=== PATIENT | male | born 1960 | race Caucasian/White ===

== ENCOUNTER 2019-01-22 18:33 | Emergency (ER) | payer OTHER ==
[2019-01-22 19:00] VITALS: BP 121/66
--- NOTE | 2019-01-22 19:14 | UC ---
Skin Complaint HPI - HPI Summary HPI Summary: Patient is a 58yo male presenting with what he believes was a tick bite or ingrown hair on the left thigh that he noticed yesterday morning. States he scratched it, it bled some, but then he left it alone. During the day yesterday he noticed it becoming increasingly red and today it spread even further and is not tender. Denies drainage. Denies seeing a tick. Denies fever, chills, nausea , vomiting. - History of Current Complaint Chief Complaint: UCBiteInjury Stated Complaint: TICK BITE LEFT THIGH Hx Obtained From: Patient Onset/Duration: Sudden Onset, Lasting Days Current Severity: Moderate Pain Intensity: 5 Pain Scale Used: 0-10 Numeric - Allergy/Home Medications Allergies/Adverse Reactions: Allergies Allergy/AdvReac Type Severity Reaction Status Date / Time codeine Allergy Nausea And Verified 01/22/19 18:57 Vomiting PMH/Surg Hx/FS Hx/Imm Hx Previously Healthy: Yes - Surgical History Surgical History: None - Family History Known Family History: Positive: Non-Contributory - Social History Alcohol Use: None Substance Use Type: Marijuana Smoking Status (MU): Heavy Every Day Tobacco Smoker Review of Systems All Other Systems Reviewed And Are Negative: Yes Constitutional: Positive: Negative. Negative: Fever, Chills Skin: Positive: Rash Respiratory: Positive: Negative. Negative: Other Cardiovascular: Positive: Negative Gastrointestinal: Positive: Negative. Negative: Abdominal Pain, Vomiting, Nausea Musculoskeletal: Positive: Edema Neurological: Negative: Paresthesia, Numbness Physical Exam Triage Information Reviewed: Yes Appearance: Well-Appearing, No Pain Distress, Well-Nourished Vital Signs: Initial Vital Signs Temp 99.6 F 01/22/19 18:56 Pulse 82 01/22/19 18:56 Resp 16 01/22/19 18:56 BP 121/66 01/22/19 18:56 Pulse Ox 97 01/22/19 18:56 Vital Signs Reviewed: Yes Eyes: Positive: Conjunctiva Clear ENT: Positive: Hearing grossly normal Neck exam: Normal Neck: Positive: Supple, Nontender Respiratory Exam: Normal Respiratory: Positive: Lungs clear, Normal breath sounds, No respiratory distress. Negative: Crackles, Rhonchi, Stridor, Wheezing Cardiovascular Exam: Normal Cardiovascular: Positive: RRR. Negative: Tachycardia Musculoskeletal: Positive: Strength Intact, No Edema Neurological: Positive: Alert Psychological: Positive: Age Appropriate Behavior Skin: Positive: Other - large area of erythema and warmth encompassing most of left medial thigh. central induration noted. no drainage or fluctuance. Course/Dx - Course Course Of Treatment: Patient without signs and symptoms of systemic infection. Vital signs normal. Patient received shot of Rocephin here and prescription for Bactrim to start tonight for treatment of cellulitis. Baseline CBC w diff was also drawn. I michelle an outline around the area of erythema and instructed him to return tomorrow if the redness has spread past the line. Patient also took a picture of the area for reference. I instructed the patient to go straight to the emergency room if at any point he experiences fever, chills, nausea, vomiting, or increasing pain. Patient is reliable historian and patient. He voiced understanding and agreed to the treatment plan. Also discussed patient with Dr. Cheema who agreed with the treatment plan. - Diagnoses Provider Diagnosis: Cellulitis of left thigh Discharge ED - Sign-Out/Discharge Documenting (check all that apply): Patient Departure All imaging exams completed and their final reports reviewed: No Studies - Discharge Plan Condition: Stable Disposition: HOME Prescriptions: Sulfamethox/Trimethoprim DS* [Bactrim DS 800/160 TAB*] 1 tab PO BID #20 tab Patient Education Materials: Cellulitis (ED) Referrals: No Primary Care Phys,NOPCP [Primary Care Provider] - Additional Instructions: As discussed, you have cellulitis, which is a skin infection. You received a shot of antibiotics here at the urgent care and have been given a prescription for Bactrim as well. Start taking the Bactrim tonight. If you notice the redness has spread tomorrow, come back in to possibly receive another antibiotic shot. Go to the emergency room if you experience severe pain, nausea, vomiting, fever , or chills at any point in time. - Billing Disposition and Condition Condition: STABLE Disposition: Home
[2019-01-22] MEDS ORDERED: cefTRIAXone VIAL(*) 1,000 MG VIAL IM ONE (19:23)
[2019-01-22] MEDS ORDERED: Lidocaine 1% INJ* 10 MG/ML 30 ML SDV INJ ONE (19:24)
[2019-01-22] MEDS ORDERED: Lidocaine 1% MPF ** 5 ML VIAL INJ ONE (19:29)
[2019-01-23 12:17] LABS: ABS Basophils 0.1 10^3/ul (0-0.2); ABS Lymphocytes 1.3 10^3/ul (1.0-4.8); ABS Monocytes 1.2 10^3/ul (0-0.8); ABS Neutrophils 10.6 10^3/ul (1.5-7.7); Eosinophil % 0.1 %; Hematocrit 44 % (42-52); Hemoglobin 14.7 g/dL (14.0-18.0); Lymphocyte % 9.6 %; Mean Corpuscular HGB Conc 34 g/dL (31-36); Mean Corpuscular Hemoglobin 31 pg (27-31); Mean Corpuscular Volume 93 fL (80-94); Mean Platelet Volume 10.7 fL (7.4-10.4); Nucleated Red Blood Cells % 0.1; Platelet Count 170 10^3/uL (150-450); Red Blood Count 4.69 10^6 /uL (4.18-5.48); Red Cell Distribution Width 14 % (10-15); White Blood Count 13.1 10^3/uL (3.5-10.8)
--- NOTE | 2019-01-24 07:18 | UC ---
- Progress Note Progress Note: CBC from January 22, 2019 comes back with elevated white blood cell count of 13.1 thousand. Normal range 3.5-10.8. Patient started on Bactrim for a cellulitis in clinic. Nursing to call patient inform him of the results and ensure that is not worsening and is improving. The patient is getting worse he should go the emergency department for further evaluation and care. Course/Dx - Diagnoses Provider Diagnoses: Cellulitis of left thigh Discharge ED - Sign-Out/Discharge Documenting (check all that apply): Patient Departure All imaging exams completed and their final reports reviewed: No Studies - Discharge Plan Condition: Stable Disposition: HOME Prescriptions: Sulfamethox/Trimethoprim DS* [Bactrim DS 800/160 TAB*] 1 tab PO BID #20 tab Patient Education Materials: Cellulitis (ED) Referrals: No Primary Care Phys,NOPCP [Primary Care Provider] - Additional Instructions: As discussed, you have cellulitis, which is a skin infection. You received a shot of antibiotics here at the urgent care and have been given a prescription for Bactrim as well. Start taking the Bactrim tonight. If you notice the redness has spread tomorrow, come back in to possibly receive another antibiotic shot. Go to the emergency room if you experience severe pain, nausea, vomiting, fever , or chills at any point in time. - Billing Disposition and Condition Condition: STABLE Disposition: Home
== END 2019-01-22 19:50 | disposition home or self-care (01) ==
LOC: UCCORT 18:33
DX: L03.116 Cellulitis of left lower limb (principal); S70.362A Insect bite (nonvenomous), left thigh, initial encounter; F17.290 Nicotine dependence, other tobacco product, uncomplicated; Z88.5 Allergy status to narcotic agent; W57.XXXA Bitten or stung by nonvenomous insect and other nonvenomous arthropods, initial encounter; Y92.9 Unspecified place or not applicable
CPT/HCPCS: 36415; 85025; 99202; G0463; J0696